=== PATIENT | female | born 1955 | race Caucasian/White ===

== ENCOUNTER 2018-08-12 07:19 | Day surgery (SDC) | payer OTHER ==
[2018-08-12 07:40] VITALS: O2SAT 100
[2018-08-12] MEDS ORDERED: Lactated Ringer's 500 ML IV ONE (08:28)
--- NOTE | 2018-08-12 08:29 | CP.SDSHP ---
Same Day Surgery H & P - History Proposed Procedure: colonoscopy Pre-Op Diagnosis: screening for colon cancer - Previous Medical/Surgical History Cardiac: Hypertension, Arrhythmia Misc: Other (DJD) - Allergies Allergies: Allergies No Known Allergies Allergy (Verified 08/11/18 12:35) - Physical Exam Vital Signs: Vital Signs 08/12/18 07:35 Temperature 97.8 F Pulse Rate 65 Respiratory 19 Rate Blood Pressure 141/80 O2 Sat by Pulse 100 Oximetry Mental Status: Alert & Oriented x3 Neuro: WNL Heart: WNL Lungs: WNL GI: WNL - {Optional Preform as Required} Abdomen: WNL - Impression Impression: screening for colon cancer Pt. Evaluated Today:Candidate for Anesthesia & Procedure: Yes - Date & Time Date: 08/12/18 Time: 08:28 Short Stay Discharge - Short Stay Discharge Admitting Diagnosis/Reason for Visit: ENCOUNTER FOR SCREENING FOR MALIGNANT NEOPLASM OF Disposition: HOME/ ROUTINE Referrals: Keenan Dykes MD [Primary Care Provider] -
[2018-08-12] MEDS ORDERED: Propofol 10 mg/ml Inj (20 ML) ONE (08:31)
[2018-08-12 09:02] VITALS: TEMP 98
[2018-08-12 11:04] VITALS: BP 121/78; PULSE 60; RESP 13
== END 2018-08-12 10:15 | disposition home or self-care (01) ==
LOC: C.ENDO 07:19
PROVIDERS: ATTEND Internal Medicine Gastroenterology
DX: Z12.11 Encounter for screening for malignant neoplasm of colon (principal); D12.0 Benign neoplasm of cecum; K64.8 Other hemorrhoids
CPT/HCPCS: 45384; 88305; J2001; J2704; J7120

== ENCOUNTER 2018-12-03 12:40 | Outpatient (CLI) | payer OTHER | END 2018-12-03 12:41 | disposition home or self-care (01) | LOC: C.USIC 12:40 ==